=== PATIENT | female | born 1995 | race Caucasian/White ===

== ENCOUNTER → 2020-10-14 16:50 | Observation (INO) | END | disposition home or self-care (01) | LOC: 1NENULAB | PROVIDERS: ADMIT Advanced Practice Midwife; ATTEND Advanced Practice Midwife ==

== ENCOUNTER 2020-12-12 04:00 | Inpatient (IN) ==
[2020-12-12] MEDS ORDERED: Metoclopramide 10 MG/2 ML VIAL IVP PRN (04:14)
[2020-12-12] MEDS ORDERED: Naloxone 0.4 MG/ML INJ IVP PRN (04:14)
[2020-12-12] MEDS ORDERED: *HR* Nalbuphine 10 MG/ML AMPUL IV PRN (04:14)
[2020-12-12] MEDS ORDERED: Famotidine 20 MG/2 ML VIAL IVP PRN (04:14)
[2020-12-12] MEDS ORDERED: Lidocaine 1% 20 ML MDV INFILT PRN (04:14)
[2020-12-12] MEDS ORDERED: Ringers Solution, Lactated 1,000 ML IVC SCH (04:15)
[2020-12-12] MEDS ORDERED: Oxytocin 20 units/ LR 1000 mL 20 UNIT/1,000 ML BAG IVC SCH ×2 (04:15→20:23)
[2020-12-12 05:12] LABS: Basophils % 0.3 %; Eosinophils # 0.1 K/mcL (0.0-0.6); Eosinophils % 1.2 %; Hematocrit 31.1 % (35.3-44.9); Immature Granulocytes % 0.3 % (0-4); Lymphocytes # 1.8 K/mcL (0.6-4.6); Mean Corpuscular HGB Conc 32.2 g/dL (31.6-35.5); Mean Corpuscular Hemoglobin 29.9 pg (28.0-33.3); Mean Corpuscular Volume 93.1 fL (83.0-100.0); Mean Platelet Volume 12.6 fL (9.4-12.4); Monocytes # 0.5 K/mcL (0.0-1.3); Neutrophils # 4.3 K/mcL (1.6-8.9); Platelet Count 181 K/mcL (140-400); Red Blood Count 3.34 M/mcL (3.82-4.97); Red Cell Distribution Width 13.8 % (11.5-14.5); Segmented Neutrophils % 64.2 %; White Blood Count 6.7 K/mcL (4.3-11.1)
[2020-12-12 05:15] LABS: Amphetamine Screen,Urine Negative ng/mL (Cutoff=1000); Barbiturate Screen,Urine Negative ng/mL (Cutoff=200); Benzodiazepines Screen,Urine Negative ng/mL (Cutoff=200); Cannabinoid Screen,Urine Negative ng/mL (Cutoff = 50); Cocaine Screen,Urine Negative ng/mL (Cutoff= 300); Opiate Screen,Urine Negative ng/mL (Cutoff=300); Phencyclidine Screen,Urine Negative ng/mL (Cutoff=25)
[2020-12-12 05:38] LABS: Influenza A PCR Negative (Negative); Influenza B PCR Negative (Negative); Resp. Syncytial Virus PCR Negative (Negative)
[2020-12-12 05:39] LABS: SARS-CoV-2 by PCR (In House) Negative (Negative)
[2020-12-12] MEDS ORDERED: EPHEDrine 50 MG/ML VIAL IVP PRN (07:12)
[2020-12-12] MEDS ORDERED: Epidural Premix (fent/bupiv) 110 ML EP SCH (07:15)
[2020-12-12] MEDS ORDERED: Methylergonovine 0.2 MG/ML AMPUL IM ONE (14:56)
[2020-12-12] MEDS ORDERED: Lidocaine/EPI 1:100k 2% 20 ML VIAL INFILT ONE (19:13)
[2020-12-12] MEDS ORDERED: Ondansetron 4 MG/2 ML VIAL ONE (19:16)
[2020-12-12] MEDS ORDERED: Ondansetron 4 MG/2 ML VIAL IVP PRN (19:17)
[2020-12-12] MEDS ORDERED: *HR* HYDROmorphone (PF) 1 MG/ML SYRINGE IM ONE (19:28)
[2020-12-12] MEDS ORDERED: Lanolin 7 G OINT...G. TP PRN (20:23)
[2020-12-12] MEDS ORDERED: Benzocaine/Menthol 56 GM AEROSOL SPRAY TP PRN (20:23)
[2020-12-12] MEDS ORDERED: Ondansetron ODT 4 MG TAB.RAPDIS SL PRN (20:23)
[2020-12-12] MEDS: Ibuprofen 600 MG TABLET PO SCH (20:34)
[2020-12-12] MEDS: Acetaminophen 325 MG TABLET PO SCH (20:34)
[2020-12-12] MEDS ORDERED: *HR* OxyCODONE Immed Rel 5 MG TABLET PO PRN (23:30)
[2020-12-13] MEDS: Ibuprofen 600 MG TABLET PO SCH ×4 (03:35→22:19)
[2020-12-13] MEDS: Acetaminophen 325 MG TABLET PO SCH ×4 (03:35→22:19)
[2020-12-13 06:18] LABS: Basophils % 0.1 %; Hematocrit 28.3 % (35.3-44.9); Hemoglobin 8.7 g/dL (11.5-15.4); Immature Granulocytes % 0.4 % (0-4); Lymphocytes # 1.6 K/mcL (0.6-4.6); Mean Corpuscular HGB Conc 30.7 g/dL (31.6-35.5); Mean Corpuscular Hemoglobin 28.6 pg (28.0-33.3); Mean Corpuscular Volume 93.1 fL (83.0-100.0); Mean Platelet Volume 12.9 fL (9.4-12.4); Monocytes # 1.1 K/mcL (0.0-1.3); Monocytes % 8.1 %; Neutrophils # 11.3 K/mcL (1.6-8.9); Platelet Count 166 K/mcL (140-400); Red Blood Count 3.04 M/mcL (3.82-4.97); Red Cell Distribution Width 14.1 % (11.5-14.5); Segmented Neutrophils % 80.4 %
[2020-12-13 06:32] LABS: White Blood Count 14.1 K/mcL (4.3-11.1)
[2020-12-13] MEDS: Prenatal Vit/FA 1 EACH TABLET PO SCH (10:08)
[2020-12-14] MEDS: Ibuprofen 600 MG TABLET PO SCH ×2 (06:03→11:20)
[2020-12-14] MEDS: Acetaminophen 325 MG TABLET PO SCH ×2 (06:04→11:21)
[2020-12-14] MEDS: Prenatal Vit/FA 1 EACH TABLET PO SCH (11:19)
[2020-12-14 11:38] VITALS: BP 112/62; PULSE 89; TEMP 97.9; O2SAT 99
== END 2020-12-14 12:02 | disposition home or self-care (01) | DRG 807 ==
LOC: 1NENULAB 04:02 → 1NENUOBS 22:08
PROVIDERS: ADMIT Student in an Organized Health Care Education/Training Program; ATTEND Student in an Organized Health Care Education/Training Program